=== PATIENT | female | born 1985 | race Caucasian/White ===

== ENCOUNTER → 2017-01-10 | Outpatient (CLI) | payer BC ==
[~2017-01-10] MED LIST: ADVIL 200MG TA200 MG PO; AMOXICILLIN 8751 TAB PO; AMOXICILLIN875 MG PO; CEPHALEXIN500 M1 PO; CIPRO 500MG TA500 MG PO; CITALOPRAM10 MG PO; CITALOPRAM40 MG PO; GOOD NEIGHBOR500 M2 PO; IMITREX100 M1 PO; METRONIDAZOLE500 MG PO; NO HOME MEDICATIONS; NORCO 325 MG-51 TA1 PO; SUMATRIPTAN SUC25 M1 PO; TOPROL XL 50MG50 MG PO
[2017-01-10 10:16] VITALS: BP 113/68
[2017-01-10 13:16] VITALS: BP 107/65
== END ==
LOC: AMSURD 10:08
DX: G43.119 Migraine with aura, intractable, without status migrainosus (principal)
CPT/HCPCS: J1100; J1200; J1885; J2300; J2765; J7030

== ENCOUNTER → 2017-01-14 | Outpatient (CLI) | payer BC ==
[2017-01-14 14:55] VITALS: BP 120/74
[2017-01-14 16:15] VITALS: BP 130/85
== END ==
LOC: AMSURD 14:49
DX: G43.009 Migraine without aura, not intractable, without status migrainosus (principal)
CPT/HCPCS: J1200; J1885; J2550; J2930; J7030

== ENCOUNTER → 2017-02-02 | Outpatient (CLI) | payer BC | LOC: LAB 11:29 | DX: G43.109 Migraine with aura, not intractable, without status migrainosus (principal) ==

== ENCOUNTER → 2017-04-11 | Outpatient (REF) ==
[2017-01-14 16:15] VITALS: BP 130/85
== END ==
LOC: LAB 11:18 → RAD 15:09 → LAB 15:09
DX: R90.82 White matter disease, unspecified (principal)
CPT/HCPCS: A9579

== ENCOUNTER → 2018-06-23 | Outpatient (CLI) | payer BC ==
[2017-01-14 16:15] VITALS: BP 130/85
== END ==
LOC: LAB 16:55
DX: N39.0 Urinary tract infection, site not specified (principal)

== ENCOUNTER → 2019-09-06 | Outpatient (CLI) | payer BC ==
[2017-01-14 16:15] VITALS: BP 130/85
== END ==
LOC: RAD 16:00
DX: K80.20 Calculus of gallbladder without cholecystitis without obstruction (principal); S39.93XA Unspecified injury of pelvis, initial encounter; N89.8 Other specified noninflammatory disorders of vagina; N20.0 Calculus of kidney

== ENCOUNTER → 2020-02-28 | Outpatient (CLI) | payer BC ==
[2017-01-14 16:15] VITALS: BP 130/85
== END ==
LOC: LAB 11:42
DX: M79.10 Myalgia, unspecified site (principal); R19.7 Diarrhea, unspecified; R68.83 Chills (without fever)

== ENCOUNTER 2021-01-28 20:33 | Emergency (ER) | payer OTHER, BC ==
[2021-01-28] MEDS ORDERED: ZONISAMIDE100 MG PO (20:54)
[2021-01-28] MEDS ORDERED: TOPIRAMATE50 MG PO (20:54)
[2021-01-28] MEDS ORDERED: PROPRANOLOL HCL20 M2 PO (20:54)
[2021-01-28] MEDS ORDERED: TOPIRAMATE100 MG PO (20:54)
[2021-01-28] MEDS ORDERED: CELEXA 20MG20 MG/TA1 PO (20:55)
[2021-01-28] MEDS ORDERED: CYCLOBENZAPRINE10 M1 PO (21:57)
[2021-01-28 22:06] VITALS: BP 117/74
== END 2021-01-28 22:06 | disposition home or self-care (01) ==
LOC: ED 20:33
DX: M62.838 Other muscle spasm (principal); R51.9 Headache, unspecified; G40.909 Epilepsy, unspecified, not intractable, without status epilepticus; F32.9 Major depressive disorder, single episode, unspecified; F17.210 Nicotine dependence, cigarettes, uncomplicated; W01.0XXA Fall on same level from slipping, tripping and stumbling without subsequent striking against object, initial encounter; Y92.59 Other trade areas as the place of occurrence of the external cause; Y99.0 Civilian activity done for income or pay
CPT/HCPCS: J1885

== ENCOUNTER → 2023-07-19 | Outpatient (CLI) | payer MEDICAID ==
[~2023-07-19] MED LIST changes: +BUTALBITAL, ACE1 TA2 PO; +CELEXA 20MG20 MG/TA1 PO; +CYCLOBENZAPRINE10 M1 PO; +DEPAKOTE ER 50500 MG PO; +DEPAKOTE250 M1 PO; +LATANOPROST 2.2.5 ML OU; +MEDROL 4MG DOSPA4 MG PO; +NAPROXEN500 MG PO; +PREDNISONE20 M1 PO; +PROPRANOLOL HCL20 M2 PO; +TOPIRAMATE100 MG PO; +TOPIRAMATE50 MG PO; +ZONISAMIDE100 MG PO
== END ==
LOC: RAD 17:00
DX: M79.641 Pain in right hand (principal)

== ENCOUNTER → 2024-01-26 | Outpatient (CLI) | payer MEDICAID | LOC: RAD 15:57 | DX: M25.552 Pain in left hip (principal) ==

== ENCOUNTER → 2024-01-31 | Outpatient (CLI) | payer MEDICAID | LOC: MAMMO 15:44 | DX: Z12.31 Encounter for screening mammogram for malignant neoplasm of breast (principal) ==

== ENCOUNTER 2024-02-17 05:21 | Emergency (ER) | payer MEDICAID ==
[2024-02-17 05:52] LABS: BASO # 0.02 K/mm3 (0.02-0.10); EOS # 0.06 K/mm3 (0.04-0.40); EOS % 0.6 % (1.0-5.0); HEMATOCRIT 42.3 % (37.0-47.0); HEMOGLOBIN 14.5 g/dL (12.5-16.0); MEAN CELL VOLUME 90 fl (78-100); MEAN CORPUSCULAR HEMOGLOBIN 31 pg (27-31); MEAN CORPUSCULAR HGB CONC 34 g/dL (33-37); MEAN PLATELET VOLUME 12.8 fl (7.4-10.4); PLATELET COUNT 173 K/mm3 (130-400); RED BLOOD COUNT 4.69 M/mm3 (4.10-5.30); RED CELL DISTRIBUTION WIDTH 12.4 % (11.5-14.5); WHITE BLOOD COUNT 9.6 K/mm3 (4.8-10.8)
[2024-02-17] MEDS ORDERED: DESVENLAFAXINE50 MG PO (05:59)
[2024-02-17] MEDS ORDERED: Ondansetron 4 MG/2 ML VIAL IV ONE (06:00)
[2024-02-17] MEDS ORDERED: Pantoprazole 40 MG in NS 10 ML IV ONE (06:00)
[2024-02-17 06:02] LABS: CALCIUM 10.2 mg/dL (8.3-10.5)
[2024-02-17 06:03] LABS: TOTAL PROTEIN 6.7 g/dL (6.4-8.3)
[2024-02-17 06:05] LABS: TOTAL BILIRUBIN 0.3 mg/dL (0.2-1.2)
[2024-02-17] MEDS ORDERED: Iohexol 300 - 10 ML VIAL IV ONE (06:32)
[2024-02-17 07:13] LABS: PH-URINE 5.5 (5.0 - 8.0); URINE APPEARANCE CLOUDY (CLEAR); URINE BILIRUBIN NEGATIVE (NEGATIVE); URINE BLOOD 3+ (NEGATIVE); URINE COLOR YELLOW (YELLOW); URINE GLUCOSE NEGATIVE (NEGATIVE); URINE KETONE NEGATIVE (NEGATIVE); URINE LEUKOCYTE ESTERASE NEGATIVE (NEGATIVE); URINE NITRATE NEGATIVE (NEGATIVE); URINE PROTEIN(semi-quant) NEGATIVE (NEGATIVE)
[2024-02-17 07:14] LABS: URINE WBC 0-1 /hpf (0-3)
[2024-02-17 08:43] VITALS: BP 122/71
== END 2024-02-17 08:30 | disposition short-term general hospital (02) ==
LOC: ED 05:21
PROVIDERS: Nurse Practitioner
DX: R10.13 Epigastric pain (principal); R11.2 Nausea with vomiting, unspecified; F17.200 Nicotine dependence, unspecified, uncomplicated; Z91.040 Latex allergy status
CPT/HCPCS: C9113; J2405; Q9967